=== PATIENT | male | born 1985 | race Caucasian/White ===

== ENCOUNTER 2019-08-02 21:16 | Emergency (ER) | payer OTHER ==
[~2019-08-02] VITALS: Ht 180.3 cm; Wt 81.6 kg
[~2019-08-02 21:16] MED LIST: ADVAIR 2501 DISK W/1 IH; SINGULAIR10 MG PO
[2019-08-02] MEDS ORDERED: TRUVADA 200 MG1 EACH PO (21:53)
== END 2019-08-02 21:58 | disposition home or self-care (01) ==
LOC: ER 21:16
DX: Z20.2 Contact with and (suspected) exposure to infections with a predominantly sexual mode of transmission (principal)

== ENCOUNTER 2021-12-04 11:28 | Emergency (ER) | payer OTHER ==
[~2021-12-04] VITALS: Ht 180.3 cm; Wt 104.3 kg
[~2021-12-04 11:28] MED LIST changes: +TRUVADA 200 MG1 EACH PO
== END 2021-12-04 12:52 | disposition home or self-care (01) ==
LOC: ER 11:28
DX: B34.9 Viral infection, unspecified (principal)